=== PATIENT | female | born 1990 | race Caucasian/White ===

== ENCOUNTER 2019-12-30 21:52 | Emergency (ER) | payer OTHER, SELFPAY ==
--- NOTE | ~2019-12-30 | XR_ITS ---
EXAMINATION: XR ankle RT 2V INDICATION: Right ankle pain TECHNIQUE: Two views of the right ankle are obtained. COMPARISON: None available FINDINGS: Bone alignment is normal. There is no fracture. The soft tissues are unremarkable. A planta r calcaneal enthesophyte is noted. IMPRESSION: 1. No acute osseous abnormality. Reviewed, dictated and finalized at location A.
[2019-12-30 21:56] VITALS: BP 148/94; PULSE 113; RESP 16; TEMP 36.9; O2SAT 100
--- NOTE | 2019-12-30 22:01 | ED.LOWEXIN ---
HPI - Extremity Injury (Lower) General Chief Complaint: Extremity Injury, Lower Stated Complaint: foot injury Time Seen by Provider: 12/30/19 21:56 Source: patient Mode of arrival: ambulatory Limitations: no limitations History of Present Illness HPI Narrative: Patient is a 29 year old female who presents to the emergency department with complaints of 9/10 right ankle pain that started tonight after she fell while walking her dog on a scooter. Her wrapped it up for her. She denies cough, cold, fever, nausea, vomiting, or diarrhea. She has a history of depression, anxiety, acid reflex, tubal ligation, cholecystectomy, bilateral carpal tunnel release, and x2 cysts removed from her right wrist. Pt is on control. She does not smoke cigarettes. Patient drinks occasionally and smokes marijuana occasionally. Patient is and works as a ADVERTISING CLERK. MD complaint: ankle injury Injury: Right: ankle Place: street/outdoors Context: fall Treatments prior to arrival: bandage Related Data Allergies Allergy/AdvReac Type Severity Reaction Status Date / Time No Known Allergies Allergy Verified 12/30/19 22:04 Review of Systems Review of Systems: All systems reviewed & are unremarkable except as noted in HPI and below Constitutional: Constitutional: Denies fever(s) and Denies other (cold) Respiratory: Respiratory: Denies cough Gastrointestinal: Gastrointestinal: Denies diarrhea, Denies nausea and Denies vomiting Musculoskeletal: Musculoskeletal: Reports other (right ankle pain) PMFSH Past Medical History Medical History (Updated 12/30/19 @ 22:30 by Nicki Sullivan MD) Anxiety Arthritis Depression DM (diabetes mellitus) Emphysema, unspecified Ganglion cyst GERD (gastroesophageal reflux disease) Hx of seizure disorder Hx: UTI (urinary tract infection) Hypercholesteremia IBS (irritable bowel syndrome) Peripheral neuropathy Surgical History Surgical History (Updated 12/30/19 @ 22:09 by Andrea Benavides) History of carpal tunnel release History of cholecystectomy History of surgical removal of ganglion cyst Hx of tubal ligation Social History Social History (Updated 12/30/19 @ 22:09 by Andrea Benavides) Smoking status: Never smoker Alcohol intake: current Alcohol use details: drinks occasionally Substance use: current Substance use type: marijuana Other substance usage details: smokes marijuana occasionally Gender identity (if verbalized by the patient): Female Exam Const: General: cooperative, healthy appearing and no acute distress Nutritional Appearance: well nourished HENMT: Head: normocephalic and atraumatic Eyes: Pupils: Equal, round and reactive pupils present EOM: EOMs intact bilaterally Resp: Effort & Inspection: normal respiratory effort Auscultation: clear to auscultation bilaterally Cardio: Rate: regular rate Rhythm: regular rhythm Heart sounds: no murmurs GI: Inspection: normal to inspection GI Palp: No abdominal tenderness Auscultation: normal bowel sounds Skin: General skin exam: other (tattoos) Neuro: General: patient oriented x3 (alert) and no focal motor deficits Extrem: Right lower extremity: ankle Details: no swelling Psych: Mental Status: mental status grossly normal Affect: normal affect Course Vital Signs Vital signs: Vital Signs Temperature 98.4 F 12/30/19 21:56 Pulse Rate 113 H 12/30/19 21:56 Respiratory Rate 16 12/30/19 21:56 Blood Pressure 148/94 H 12/30/19 21:56 Pulse Oximetry 100 12/30/19 21:56 Temperature 98.4 F 12/30/19 21:56 Pulse Rate 113 H 12/30/19 21:56 Respiratory Rate 16 12/30/19 21:56 Blood Pressure 148/94 H 12/30/19 21:56 Pulse Oximetry 100 12/30/19 21:56 MDM - Extremity Injury (Lower) Imaging Data Radiologist's impression: ITS Impressions Ankle X-Ray 12/30/19 22:15 IMPRESSION: 1. No acute osseous abnormality. Discharge Plan Discharge Clinical Impression:
== END 2019-12-30 22:50 | disposition home or self-care (01) ==
PROVIDERS: Emergency Provider Emergency Medicine
DX: S93.401A Sprain of unspecified ligament of right ankle, initial encounter (principal); S96.911A Strain of unspecified muscle and tendon at ankle and foot level, right foot, initial encounter; V00.141A Fall from scooter (nonmotorized), initial encounter; M19.90 Unspecified osteoarthritis, unspecified site; K21.9 Gastro-esophageal reflux disease without esophagitis; E78.00 Pure hypercholesterolemia, unspecified; E11.42 Type 2 diabetes mellitus with diabetic polyneuropathy
CPT/HCPCS: 73600; 99283; A9270

== ENCOUNTER 2020-03-05 10:07 | Outpatient (CLI) | payer OTHER, SELFPAY ==
--- NOTE | 2020-03-08 13:45 | WPDPFTINT ---
PFT Interpretation PFT Interpretation: DOS: 03/05/2020 REQUESTING: DANIELLA Suresh REASON FOR TESTING: Dyspnea, unspecified PULMONARY FUNCTION TESTS Results are reproducible. Spirometry: FEV1 is 79%, 2.35 L, mildly reduced. FVC is 77%, mildly reduced. The FEV1% is normal. OCB60-37% is 74%. After bronchodilator, there is a 20% increase in TPG03-54%. Lung volumes: TLC 73%, consistent with mild restriction. RV is 53%, moderately reduced. ERV is decreased at 32%, likely due to elevated BMI, 37.2. Normal airway resistance, 124%. Diffusion: DLCO is mildly decreased 63%. Flow volume loop: Normal. IMPRESSION: Overlap of obstruction and restriction with mild decrease in diffusion. The obstructive finding is the small airways pattern with a good response to bronchodilator. Mild restriction is seen which may be due to elevated BMI. There is a mild decrease in diffusion. All these features combined may be seen in conditions such as sarcoidosis. Decrease in diffusion is not a feature of obesity. This may be an independent finding, and may be due to anemia, smoking, early ILD, chronic thromboembolic disease, and collagen vascular disease with pulmonary vascular involvement. Clinical correlation is recommended. Jessica Flores MD
== END 2020-03-05 10:08 | disposition home or self-care (01) ==
LOC: ANHPFT 10:09
PROVIDERS: PCP Physician Assistant; Visit Provider Physician Assistant
DX: R06.00 Dyspnea, unspecified (principal); R94.2 Abnormal results of pulmonary function studies
CPT/HCPCS: 94060; 94726; 94729

== ENCOUNTER 2020-06-16 09:13 | Outpatient (CLI) | payer OTHER, SELFPAY ==
--- NOTE | 2020-06-23 09:24 | WPDSIXMINUTE ---
Six Minute Walk Six Minute Walk: The patients O2 sats started at 100% and dropped as low as 95% Total walk distance 900 ft conclusion: This patient does not qualify for home oxygen use
== END 2020-06-16 09:14 | disposition home or self-care (01) ==
PROVIDERS: PCP Physician Assistant; Visit Provider Nurse Practitioner
DX: R06.09 Other forms of dyspnea (principal)
CPT/HCPCS: 94618